=== PATIENT | male | born 2000 | race Caucasian/White ===

== ENCOUNTER 2022-11-01 04:14 | Emergency (ER) | payer OTHER, SELFPAY ==
[2022-11-01 04:27] VITALS: BP 128/77; PULSE 85; RESP 16; TEMP 36.4; O2SAT 97
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
--- NOTE | 2022-11-01 06:22 | ED.NURSE ---
Called, left msg with [facility] team, waiting for call back
[2022-11-01 06:26] VITALS: PULSE 81; RESP 18; O2SAT 100
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
== END 2022-11-01 06:35 | disposition home or self-care (01) ==
PROVIDERS: Emergency Provider Internal Medicine
DX: S00.81XA Abrasion of other part of head, initial encounter (principal); Y04.2XXA Assault by strike against or bumped into by another person, initial encounter; Y93.F9 Activity, other caregiving
CPT/HCPCS: 99282; 99283

== ENCOUNTER 2023-06-12 23:51 | Outpatient (CLI) | payer OTHER, SELFPAY | END 2023-06-12 23:52 | disposition home or self-care (01) | LOC: AMB 06-15 09:51 | PROVIDERS: Visit Provider Family Medicine | DX: T65.91XA Toxic effect of unspecified substance, accidental (unintentional), initial encounter (principal); Y92.214 College as the place of occurrence of the external cause | CPT/HCPCS: A0425; A0427 ==

== ENCOUNTER 2023-06-13 00:30 | Emergency (ER) | payer OTHER, SELFPAY ==
[2023-06-13 00:31] VITALS: BP 134/83; PULSE 102; RESP 18; TEMP 36.8; O2SAT 99; BMI 27.4
--- NOTE | 2023-06-13 00:47 | ED.NURSE ---
patients roommate at bedside. Patients brother called and updated
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
--- NOTE | 2023-06-13 02:54 | ED.NURSE ---
Parents at bedside. Given update
[2023-06-13 04:56] VITALS: PULSE 80; RESP 16
== END 2023-06-13 05:01 | disposition home or self-care (01) ==
PROVIDERS: Emergency Provider Family Medicine
DX: F10.129 Alcohol abuse with intoxication, unspecified (principal)
CPT/HCPCS: 99282; 99283